=== PATIENT | male | born 2005 | race Caucasian/White ===

== ENCOUNTER 2024-02-18 20:38 | Emergency (ER) | payer BC, MEDICAID, OTHER, SELFPAY ==
[~2024-02-18] VITALS: Ht 167.6 cm; Wt 62.9 kg
[2024-02-18] MEDS ORDERED: IBUP200C29 PO (20:44)
[2024-02-18] MEDS ORDERED: AMOX875T2 PO (21:47)
[2024-02-18] MEDS ORDERED: IBUP80TA PO (21:47)
[2024-02-18] MEDS: AUGMENTIN 875 MG TAB PO ONE (21:50)
[2024-02-18 22:04] VITALS: BP 138/69; TEMP 98.9; O2SAT 97
== END 2024-02-18 22:05 | disposition home or self-care (01) ==
LOC: M ED 20:38
DX: K05.00 Acute gingivitis, plaque induced (principal); K02.9 Dental caries, unspecified; Z79.1 Long term (current) use of non-steroidal anti-inflammatories (NSAID); Z79.2 Long term (current) use of antibiotics

== ENCOUNTER 2025-03-02 20:53 | Emergency (ER) | payer SELFPAY, OTHER ==
[~2025-03-02] VITALS: Ht 170.2 cm; Wt 55.3 kg
[~2025-03-02 20:53] MED LIST: AMOX875T2 PO; IBUP200C29 PO; IBUP80TA PO
[2025-03-02 20:56] VITALS: TEMP 98.2
[2025-03-03 03:00] VITALS: BP 111/62
[2025-03-03] MEDS ORDERED: AMOX600S51 PO (03:09)
[2025-03-03] MEDS: AUGMENTIN BID 400 MG/5 ML SUSP 50 ML BTL PO ONE (03:20)
[2025-03-03] MEDS: BOOSTRIX VACCINE (TETANUS/DIPHTH/ACEL. PERTUSSIS) 0.5 ML SYR IM ONE (03:22)
[2025-03-03 03:23] VITALS: O2SAT 98
== END 2025-03-03 03:37 | disposition home or self-care (01) ==
LOC: M ED 20:53
DX: S81.852A Open bite, left lower leg, initial encounter (principal); Y92.9 Unspecified place or not applicable; Y93.9 Activity, unspecified; Y99.9 Unspecified external cause status; W54.0XXA Bitten by dog, initial encounter; J45.909 Unspecified asthma, uncomplicated; F12.10 Cannabis abuse, uncomplicated; Z79.2 Long term (current) use of antibiotics; Z23 Encounter for immunization

== ENCOUNTER 2025-04-07 17:19 | Emergency (ER) | payer BC, OTHER, SELFPAY ==
[~2025-04-07] VITALS: Ht 167.6 cm; Wt 56.8 kg
[~2025-04-07 17:19] MED LIST changes: +AMOX600S51 PO
[2025-04-07 17:31] VITALS: TEMP 97.9
[2025-04-07 19:56] VITALS: BP 126/80; O2SAT 100
[2025-04-07] MEDS: LIDOCAINE 2% MDV 20 ML VIAL SC ONE (20:20)
[2025-04-07] MEDS ORDERED: AMOX875T2 PO (20:55)
== END 2025-04-07 21:08 | disposition home or self-care (01) ==
LOC: EDBD 17:19 → M ED 17:19
DX: S01.511A Laceration without foreign body of lip, initial encounter (principal); Y92.410 Unspecified street and highway as the place of occurrence of the external cause; Y93.9 Activity, unspecified; Y99.9 Unspecified external cause status; Y04.2XXA Assault by strike against or bumped into by another person, initial encounter; F12.10 Cannabis abuse, uncomplicated; Z79.2 Long term (current) use of antibiotics